=== PATIENT | female | born 1945 | race Caucasian/White ===

== ENCOUNTER 2016-09-06 09:45 | Emergency (ER) | payer MEDICARE, OTHER ==
[2016-09-06 09:46] VITALS: BMI 23.9
[2016-09-06 09:49] VITALS: O2SAT 99
[2016-09-06] MEDS ORDERED: Sodium Chloride 0.9% 500 ML IV ONE (10:14)
[2016-09-06 10:25] LABS: BASO # 0.1 K/uL (0.0-0.2); BASO % 1.3 % (0.0-2.0); EOS % 0.9 % (0.0-4.0); HEMATOCRIT 37.7 % (34.0-47.0); LYMPH # 1.8 K/uL (1.0-4.3); LYMPH % 32.3 % (20.0-40.0); MEAN CELL VOLUME 94.9 fL (81.0-99.0); MEAN CORPUSCULAR HGB CONC 32.6 g/dL (33.0-37.0); MEAN PLATELET VOLUME 8.5 fL (7.2-11.7); MONO # 0.5 K/uL (0.0-0.8); MONO % 8.6 % (0.0-10.0); RED CELL DISTRIBUTION WIDTH 13.6 % (11.5-14.5); WHITE BLOOD COUNT 5.5 K/uL (4.8-10.8)
[2016-09-06 10:33] LABS: RBC URINE 2 /hpf (0-3); URINE BACTERIA RARE (<OCC); URINE BILIRUBIN NEGATIVE (NEGATIVE); URINE BLOOD NEGATIVE (NEGATIVE); URINE COLOR Yellow (YELLOW); URINE GLUCOSE (UA) NORMAL (Normal); URINE KETONE NEGATIVE (NEGATIVE); URINE LEUKOCYTE ESTERASE NEG Leu/uL (Negative); URINE PROTEIN NEGATIVE (NEGATIVE); URINE UROBILINOGEN NORMAL mg/dL (0.2-1.0); WBC URINE < 1 /hpf (0-5)
--- NOTE | 2016-09-06 10:34 | C.PDOC ---
History Of Present Illness 71 y/o female presents to the ED complaining of RUQ abdominal pain with associated nausea and vomiting x 4 days. Patient reports that the pain is intermittent and worse after food intake. She also notes one episode of diarrhea. Patient denies chest pain, shortness of breath, cough, fever, dysuria /hematuria, vaginal bleeding/discharge. Time Seen by Provider: 09/06/16 09:55 Chief Complaint (Nursing): Abdominal Pain History Per: Patient History/Exam Limitations: no limitations Onset/Duration Of Symptoms: Days (4), Intermittent Episodes Current Symptoms Are (Timing): Still Present Location Of Pain/Discomfort: RUQ Radiation Of Pain To:: None Associated Symptoms: Nausea, Vomiting, Diarrhea Recent travel outside of the [place]: No Past Medical History Reviewed: Historical Data, Nursing Documentation, Vital Signs Vital Signs: Last Vital Signs Temp 97.9 F 09/06/16 13:37 Pulse 55 L 09/06/16 13:37 Resp 16 09/06/16 13:37 BP 184/74 H 09/06/16 13:37 Pulse Ox 99 09/15/16 15:56 - Medical History PMH: Asthma, HTN, Hypercholesterolemia Surgical History: No Surg Hx Family History: States: No Known Family Hx - Social History Hx Tobacco Use: Yes Hx Alcohol Use: No Hx Substance Use: No - Immunization History Hx Tetanus Toxoid Vaccination: No Hx Influenza Vaccination: No Hx Pneumococcal Vaccination: No Review Of Systems Except As Marked, All Systems Reviewed And Found Negative. Constitutional: Negative for: Fever Cardiovascular: Negative for: Chest Pain Respiratory: Negative for: Cough, Shortness of Breath Gastrointestinal: Positive for: Nausea, Vomiting, Abdominal Pain (RUQ), Diarrhea Genitourinary: Negative for: Dysuria, Hematuria, Vaginal Discharge, Vaginal Bleeding Skin: Negative for: Rash Physical Exam - Physical Exam Appears: Well, Non-toxic, No Acute Distress Skin: Normal Color, Warm, Dry, No Rash Head: Normacephalic Eye(s): bilateral: Normal Inspection Oral Mucosa: Moist Neck: Normal, Normal ROM, Supple Cardiovascular: Rhythm Regular Respiratory: Normal Breath Sounds, No Rales, No Rhonchi, No Wheezing Gastrointestinal/Abdominal: Bowel Sounds, Soft, Tenderness (RUQ TTP), No Guarding, No Rebound, Other ((+) Oneal's sign) Back: Normal Inspection, No CVA Tenderness Extremity: Normal ROM, No Swelling Neurological/Psych: Oriented x3 ED Course And Treatment - Laboratory Results Result Diagrams: 09/06/16 10:21 09/06/16 10:21 O2 Sat by Pulse Oximetry: 99 (ra) Pulse Ox Interpretation: Normal - CT Scan/US Ultrasound Other Rad Studies (CT/US): Read By Radiologist, Radiology Report Reviewed CT/US Interpretation: Accession No. : [id number]. Patient Name / ID : WHITLEY RUSSO / [id number]. Exam Date : 09/06/2016 11:41:20 ( Approved ). Study Comment : Sex / Age : F / 71Y. Creator : Rita Ruby MD. Dictator : Rtia Ruby MD. Manager Dairy : Juice Scaleman : Rita Ruby MD. Approver2 : Report Date : 09/06/2016 12:16:38. My Comment : . HISTORY: ruq pain, r/o cholecystitis. COMPARISON: None available. TECHNIQUE: Sonographic evaluation of the right upper quadrant of the abdomen. FINDINGS: LIVER: Measures 17.5 cm in length. Echogenic liver may be seen in setting of hepatic parenchymal disease or fatty infiltration. No focal hepatic mass identified. The main portal vein appears patent with normal directional flow. No intrahepatic bile duct dilatation. GALLBLADDER: No gallstones. No gallbladder wall thickening or pericholecystic edema. Negative sonographic Oneal's sign as assessed by the cigar head stringer. COMMON BILE DUCT: Measures 5 mm. PANCREAS: Not well-visualized. RIGHT KIDNEY: Measures 9.9 x 4.0 x 5.0 cm. No obstructing calculus or hydronephrosis identified. AORTA: Limited visualization appears grossly unremarkable. IVC: Limited visualization appears grossly unremarkable. OTHER FINDINGS: None . IMPRESSION: Echogenic liver may be seen in setting of hepatic parenchymal disease or fatty infiltration. Progress Note: Blood work, EKG, Urinalysis, and Ultrasound abdomen ordered and reviewed. Patient given IV NS bolus. Patient did not want pain medication. Reevaluation Time: 13:15 Reassessment Condition: Improved (On reassessment, patient is resting comfortably, has no pain currently. On exam, abdomen is soft and nontender. Blood work is WNL, and US (-) for gallstones/acute cholecystitis. Patient given Naprosyn for pain, and was instructed to follow up with PMD/clinic in 1-2 days. She understands he should return to ED if symptoms worsen.) Disposition Counseled Patient/Family Regarding: Studies Performed, Diagnosis, Need For Followup, Rx Given - Disposition Referrals: [facility] [Outside] Disposition: HOME/ ROUTINE Disposition Time: 13:20 Condition: STABLE Prescriptions: Naproxen [Naprosyn Tab] 375 mg PO BID PRN #15 tab PRN Reason: pain Instructions: Non-Alcoholic Fatty Liver Disease (ED), Acute Abdominal Pain (ED) Print Language: ITALIAN - POA Present On Arrival: None - Clinical Impression Clinical Impression: Abdominal pain, Fatty liver - Scribe Statement The provider has reviewed the documentation as recorded by the Scribe (Maira Hendricks) Provider Attestation: All medical record entries made by the Scribe were at my direction and personally dictated by me. I have reviewed the chart and agree that the record accurately reflects my personal performance of the history, physical exam, medical decision making, and the department course for this patient. I have also personally directed, reviewed, and agree with the discharge instructions and disposition.
[2016-09-06 10:36] LABS: CHLORIDE 100 mmol/L (98-107)
[2016-09-06 10:37] LABS: POTASSIUM 4.1 mmol/L (3.6-5.2); SODIUM 139 mmol/L (132-148)
[2016-09-06 10:39] LABS: BILIRUBIN,TOTAL 0.3 mg/dL (0.2-1.3); GFR AFRICAN-AMERICAN > 60
[2016-09-06 10:40] LABS: ALB/GLOB RATIO 1.2 (1.0-2.1); ALKALINE PHOSPHATASE 64 U/L (38-126); ALT/SGPT 14 U/L (9-52); AST/SGOT 15 U/L (14-36); BLOOD UREA NITROGEN 6 mg/dL (7-17); CALCIUM 9.1 mg/dl (8.6-10.4); CARBON DIOXIDE 27 mmol/L (22-30); GLUCOSE,RANDOM 100 mg/dL (65-105)
--- NOTE | 2016-09-06 12:18 | US ---
HISTORY: ruq pain, r/o cholecystitis COMPARISON: None available. TECHNIQUE: Sonographic evaluation of the right upper quadrant of the abdomen. FINDINGS: LIVER: Measures 17.5 cm in length. Echogenic liver may be seen in setting of hepatic parenchymal disease or fatty infiltration. No focal hepatic mass identified. The main portal vein appears patent with normal directional flow. No intrahepatic bile duct dilatation. GALLBLADDER: No gallstones. No gallbladder wall thickening or pericholecystic edema. Negative sonographic Oneal's sign as assessed by the rn maternity. COMMON BILE DUCT: Measures 5 mm. PANCREAS: Not well-visualized. RIGHT KIDNEY: Measures 9.9 x 4.0 x 5.0 cm. No obstructing calculus or hydronephrosis identified. AORTA: Limited visualization appears grossly unremarkable. IVC: Limited visualization appears grossly unremarkable. OTHER FINDINGS: None . IMPRESSION: Echogenic liver may be seen in setting of hepatic parenchymal disease or fatty infiltration.
[2016-09-06 13:38] VITALS: BP 184/74; PULSE 55; RESP 16; TEMP 97.9
--- NOTE | 2016-09-10 09:08 | CARD ---
APPROVED REPORT EKG Measurement Heart [id number] <Conclusion> Sinus bradycardia Left axis deviation [id number] Abnormal ECG
== END 2016-09-06 13:50 | disposition home or self-care (01) ==
LOC: C.ER 09:45
DX: K76.0 Fatty (change of) liver, not elsewhere classified (principal); R10.11 Right upper quadrant pain
CPT/HCPCS: 76705; 80053; 81001; 82948; 83690; 85025; 93005; 99285; J7040